=== PATIENT | female | born 1995 | race Caucasian/White ===

== ENCOUNTER 2023-12-01 22:29 | Emergency (ER) | payer BC, OTHER | END 2023-12-02 01:48 | disposition home or self-care (01) | LOC: ERS 22:29 | DX: O99.711 Diseases of the skin and subcutaneous tissue complicating pregnancy, first trimester (principal); M79.81 Nontraumatic hematoma of soft tissue; R22.2 Localized swelling, mass and lump, trunk; Z3A.09 9 weeks gestation of pregnancy | CPT/HCPCS: 99284 ==